=== PATIENT | male | born 1945 | race Caucasian/White ===

== ENCOUNTER 2018-08-31 09:26 | Emergency (ER) | payer MEDICARE ==
[~2018-08-31] VITALS: Ht 175.3 cm; Wt 104.2 kg
[2018-08-31 10:23] LABS: BASOPHILS # (AUTO) 0.08 x10^3/uL (0-0.1); BASOPHILS % (AUTO) 1 % (0-1); EOSINOPHILS # (AUTO) 0.06 x10^3/uL (0-0.4); EOSINOPHILS % (AUTO) 0 % (1-7); LYMPHOCYTES # (AUTO) 1.78 x10^3/uL (1-3.4); LYMPHOCYTES % (AUTO) 11 % (22-44); MD NO; MEAN CORPUSCULAR HEMOGLOBIN 30.3 pg (27.5-34.5); MEAN CORPUSCULAR HGB CONC 32.5 g/dL (33.2-36.2); MEAN CORPUSCULAR VOLUME 93.3 fL (81-97); MEAN PLATELET VOLUME 8.1 fL (7.4-10.4); MONOCYTES # (AUTO) 1.38 x10^3/uL (0.2-0.8); MONOCYTES % (AUTO) 9 % (2-9); NEUTROPHILS # (AUTO) 12.38 x10^3/uL (1.8-6.8); NEUTROPHILS % (AUTO) 79 % (42-75); PLATELET COUNT 225 x10^3/uL (130-400); RED BLOOD COUNT 4.74 x10^6/uL (4.38-5.82); RED CELL DISTRIBUTION WIDTH 13.4 % (9.4-14.8)
[2018-08-31 10:34] LABS: ALBUMIN 3.7 g/dL (3.4-5.0); ANION GAP 6 mmol/L (5-15); CALCIUM 8.7 mg/dL (8.5-10.1); CHLORIDE 104 mmol/L (98-107); CREATININE 1.16 mg/dL (0.7-1.3)
--- NOTE | 2018-08-31 10:52 | NUR ---
DR. MITTAL AT BEDSIDE. BEDSIDE BLADDER SCAN SHOWED 496 MLS OF URINE. PT ATTEMPTING TO VOID THEN POST VOID BLADDER SCAN WILL BE DONE.
[2018-08-31 11:54] LABS: MICROSCOPIC INDICATED
--- NOTE | 2018-08-31 12:00 | NUR ---
PT AWARE WE ARE WAITING ON MACRO UA. PT UPDATED ON POC.
--- NOTE | 2018-08-31 12:30 | NUR ---
DR. MITTAL AT BEDSIDE. STILL WAITING ON MICRO UA BUT MACRO INDICATED UTI.
[2018-08-31 12:35] VITALS: BP 130/63
[2018-08-31 12:45] LABS: CULTURE INDICATED? YES
[2018-08-31] MEDS ORDERED: GABA300C10 PO (12:52)
[2018-08-31] MEDS ORDERED: MULT-257 PO (12:52)
== END 2018-08-31 13:46 | disposition home or self-care (01) ==
LOC: ED 11:18
DX: N30.00 Acute cystitis without hematuria (principal)
CPT/HCPCS: 36415; 80048; 81001; 82040; 85025; 87077; 87086; 87186; 99283

== ENCOUNTER → 2021-02-23 | Outpatient (CLI) | payer MEDICARE ==
[~2021-02-23] MED LIST: GABA300C10 PO; MULT-257 PO
[2021-02-23 16:37] LABS: BASOPHILS % (AUTO) 1 % (0-1); EOSINOPHILS % (AUTO) 1 % (1-7); LYMPHOCYTES % (AUTO) 16 % (22-44); MEAN CORPUSCULAR HEMOGLOBIN 31.3 pg (27.5-34.5); MEAN CORPUSCULAR HGB CONC 34.1 g/dL (33.2-36.2); MEAN PLATELET VOLUME 7.6 fL (7.4-10.4); MONOCYTES % (AUTO) 9 % (2-9); NEUTROPHILS % (AUTO) 75 % (42-75); PLATELET COUNT 246 x10^3/uL (130-400); RED BLOOD COUNT 5.07 x10^6/uL (4.38-5.82)
[2021-02-23 16:47] LABS: ANION GAP 8 mmol/L (5-15); CALCIUM 9.5 mg/dL (8.5-10.1); CHLORIDE 105 mmol/L (98-107); CREATININE 1.06 mg/dL (0.7-1.3)
[2021-02-23 16:49] LABS: INTERNATIONAL NORMALIZED RATIO 1.03 (0.93-1.1)
[2021-02-23 16:51] LABS: MICROSCOPIC NOT IND
== END | disposition home or self-care (01) ==
LOC: LAB 15:56
PROVIDERS: ATTEND Family Medicine
DX: Z01.818 Encounter for other preprocedural examination (principal); N40.1 Benign prostatic hyperplasia with lower urinary tract symptoms; R00.1 Bradycardia, unspecified; R94.31 Abnormal electrocardiogram [ECG] [EKG]; Z79.01 Long term (current) use of anticoagulants
CPT/HCPCS: 36415; 80048; 81003; 85025; 85610; 85730; 87086; 93005